=== PATIENT | male | born 1980 | race Caucasian/White ===

== ENCOUNTER 2018-08-30 09:56 | Emergency (ER) | payer SELFPAY ==
[~2018-08-30] VITALS: Ht 188 cm; Wt 60.6 kg
--- OUTSIDE RECORDS SUMMARY | 2018-08-30 09:59 | XMS REPORT | Summary of Care ---
Author Author [facility] Organization [facility] Address Unknown Phone Unavailable Encounter MARIYA Allison(YESENIA) [id number] Date(s): 09/18/16 - 09/18/16 [facility] [address] [place] [address]- Discharge Diagnosis: Acute hip pain Discharge Disposition: Home or Self Care Attending Physician: Heath Fay MD Vital Signs 1 2 3 Most recent to oldest [Reference Range]: 187.96 cm (09/18/16 4:23 PM) Height 98.1 DegF (09/18/16 4:23 PM) Temperature Oral [96.4-99.1 DegF] 132/79 mmHg (09/18/16 6:13 PM) 125/70 mmHg (09/18/16 5:00 PM) 133/90 mmHg (09/18/16 4:23 PM) Blood Pressure [90-140/60-90 mmHg] 16 BRMIN (09/18/16 4:23 PM) Respiratory Rate [14-20 BRMIN] 82 bpm (09/18/16 4:23 PM) Peripheral Pulse Rate [60-100 bpm] 75 kg (09/18/16 4:23 PM) Weight 21.23 m2 (09/18/16 4:23 PM) Body Mass Index Problem List Condition Effective Dates Status Health Status Informant Anxiety(Confirmed) Resolved Allergies, Adverse Reactions, Alerts Substance Reaction Severity Status NKDA Active Medications Motrin 800 mg oral tablet 800 mg=1 tab, PO, Q8H, PRN Pain, Take with food, # 18 tab, 0 Refill(s) Start Date: 09/18/16 Stop Date: 09/19/16 Status: Completed Ultram 50 mg oral tablet 1 - 2 tabs, PO, Q4-6H, PRN as needed for pain, # 16 tab, 0 Refill(s) Start Date: 09/18/16 Stop Date: 09/19/16 Status: Completed Results No data available for this section Immunizations No data available for this section Procedures No data available for this section Social History Social History Type Response Smoking Status Current every day smoker; Type: Cigarettes; Ready to change: No; Concerns about tobacco use in household: Yes; Exposure to Tobacco Smoke None; Cigarette Smoking Last 365 Days No; Reg Smoking Cessation Counseling No Assessment and Plan No data available for this section
--- OUTSIDE RECORDS SUMMARY | 2018-08-30 09:59 | XMS REPORT | Summary of Care ---
Author Author [facility] Organization [facility] Address Unknown Phone Unavailable Encounter MARIYA Allison(YESENIA) [id number] Date(s): 12/19/15 - 12/19/15 [facility] [address] [place] [address]- [phone] Discharge Disposition: Elopement Attending Physician: Mac Jackson MD Vital Signs Most recent to 1 oldest [Reference Range]: Height 187.96 cm (12/19/15 4:44 PM) Temperature Oral 98.0 DegF [96.4-99.1 DegF] (12/19/15 4:44 PM) Blood Pressure 117/61 mmHg [90-140/60-90 mmHg] (12/19/15 4:44 PM) Respiratory Rate 18 BRMIN [14-20 BRMIN] (12/19/15 4:44 PM) Peripheral Pulse 89 bpm Rate [60-100 bpm] (12/19/15 4:44 PM) Weight 70.455 kg (12/19/15 4:44 PM) Body Mass Index 19.94 m2 (12/19/15 4:44 PM) Problem List Condition Effective Dates Status Health Status Informant Anxiety(Confirmed) Resolved Allergies, Adverse Reactions, Alerts Substance Reaction Severity Status NKDA Active Medications No data available for this section Results No data available for this section [...]
--- OUTSIDE RECORDS SUMMARY | 2018-08-30 09:59 | XMS REPORT | Summary of Care ---
Author Author [facility] Organization [facility] Address Unknown Phone Unavailable Encounter MARIYA Allison(YESENIA) [id number] Date(s): 12/12/15 - 12/12/15 [id number] [place] [address]- Discharge Diagnosis: Avascular necrosis Discharge Diagnosis: Chronic hip pain Discharge Disposition: Home or Self Care Attending Physician: Philip Ruff MD Vital Signs Most recent to 1 2 oldest [Reference Range]: Temperature Oral 98.5 DegF [96.4-99.1 DegF] (12/12/15 2:28 PM) Blood Pressure 111/64 mmHg 136/77 mmHg [90-140/60-90 mmHg] (12/12/15 4:20 PM) (12/12/15 2:28 PM) Respiratory Rate 17 BRMIN 18 BRMIN [14-20 BRMIN] (12/12/15 4:20 PM) (12/12/15 2:28 PM) Peripheral Pulse 82 bpm 102 bpm Rate [60-100 bpm] (12/12/15 4:20 PM) *HI* (12/12/15 2:28 PM) Weight 70 kg (12/12/15 2:28 PM) Problem List Condition Effective Dates Status Health Status Informant Anxiety(Confirmed) Resolved Allergies, Adverse Reactions, Alerts Substance Reaction Severity Status NKDA Active Medications tramadol 50 mg oral tablet 50 mg, PO, Q4-6H, PRN Pain, X 4 day, # 20 tab, 0 Refill(s) Start Date: 12/12/15 Stop Date: 12/16/15 Status: Ordered Results No data available for this section [...]
--- OUTSIDE RECORDS SUMMARY | 2018-08-30 09:59 | XMS REPORT | Continuity of Care Document ---
Author Author [employer] Address Unknown Phone Unavailable Care Team Providers Care Guide Name Role Phone DrEd Online Doctor Information Mango-Mate Unavailable Unavailable Problems Problem Status Onset Date Classification Date Reported Comments Source Discharge Diagnosis: Acute hip pain 09/18/2016 09/21/2016 [facility] HIP PAINV Active 09/18/2016 [facility] HIP PAIN Active 09/18/2016 [facility] ALTERED Active 12/19/2015 [facility] Discharge Diagnosis: Avascular necrosis 12/12/2015 12/15/2015 [facility] Discharge Diagnosis: Chronic hip pain 12/12/2015 12/15/2015 [facility] COLD;SORE THROAT; RINGWORM Active 01/30/2014 [facility] Discharge Diagnosis: Allergic reaction to insect sting 09/23/2013 09/26/2013 [facility] INSECT BITE Active 09/23/2013 [facility] Anxiety Resolved Problem 09/21/2016 [facility] Medications Medication Details Route Status Patient Instructions Ordering Provider Order Date Source tramadol hydrochloride 50 MG Oral Tablet [Ultram] 1 - 2 tabs, PO, Q4-6H, PRN as needed for pain, # 16 tab, 0 Refill(s) No Longer Active 09/18/2016 [facility] Motrin 800 mg oral tablet 800 mg=1 tab, PO, Q8H, PRN Pain, Take with food, # 18 tab, 0 Refill(s) No Longer Active 09/18/2016 [facility] tramadol hydrochloride 50 MG Oral Tablet 50 mg, PO, Q4- 6H, PRN Pain, X 4 day, # 20 tab, 0 Refill(s) Active 12/12/2015 [facility] Tylenol 650 mg, Route: PO, Drug form: TAB, ONCE, Dosing Weight 74.182, kg, Priority: STAT, Start date: 01/30/14 20:54:00, Stop date: 01/30/14 20:54:00 Inactive 01/31/2014 [facility] Zantac 50 mg, 2 mL, Route: IV, Drug form: INJ, ONCE, Start date: 09/23/13 12:00:00, Stop date: 09/23/13 12:00:00Notes: (Same as:Zantac) Non-Formulary Item Inactive 09/23/2013 [facility] sodium chloride 5 mL, Route: IV, Start date: 09/23/13 11:45:00, Stop date: 09/23/13 11:45:00Notes: preservative free. Inactive 09/23/2013 [facility] methylPREDNISolone SODium SUCCinate 125 mg, 2 mL, Route: IVP, Drug form: INJ, ONCE, Dosing Weight 70.909, kg, Priority: STAT, Start date: 09/23/13 10:52:00, Stop date: 09/23/13 10:52:00Notes: (Same as:Solu- MEDROL, A-Methapred) Inactive 09/23/2013 [facility] Diphenhydramine 50 mg, 1 mL, Route: IVP, Drug form: INJ, ONCE, Dosing Weight 70.909, kg, Priority: STAT, Start date: 09/23/13 10:51:00, Stop date: 09/23/13 10:51:00Notes: (Same as: Benadryl) Inactive 09/23/2013 [facility] Famotidine 20 mg, 2 mL, Route: IVP, Drug form: INJ, ONCE, Dosing Weight 70.909, kg, Priority: STAT, Start date: 09/23/13 10:51:00, Stop date: 09/23/13 10:51:00Notes: (Same as: Pepcid) Can be dilute in 5-10cc NS IVP: Slow IV push over at least 2 minutes. Inactive 09/23/2013 [facility] Saline Flush 0.9% 5 ml, Route: IVP, Drug Form: INJ, Dosing Weight 70.909, kg, Q8H, PRN Line Flush, STAT, Start date: 09/23/13 10:51:00, Duration: 30 day, Stop date: 10/23/13 10:50:00Notes: (Same as: BD Posiflush) Inactive 09/23/2013 [facility] Allergies, Adverse Reactions, Alerts No Known Medication Allergies Immunizations No Data Provided for This Section Results Order Name Results Value Reference Range Date Interpretation Comments Source IMMUNOLOGY CDC HIV 4th GEN Negative (09/23/13 11:10 AM) Negative 09/23/2013 [facility] Pathology Reports No Data Provided for This Section Diagnostic Reports Report Value Date Source Femur series DX Radiographs of the LEFT femur Clinical Indication: Trauma - Pain. Comparison: Prior radiographs from December 12, 2015. Technique: 5 views femur FINDINGS: There is a deformity of the left femoral head, with articular surface flattening and subchondral lucency. This is likely reflective of chronic avascular necrosis. No definitive acute fracture or dislocation. No obvious soft tissue swelling. No evidence of radiopaque foreign body. If there is persistent clinical concern, CT or MRI can be obtained for further evaluation. IMPRESSION: No acute fractures. Sequela of left femoral head avascular necrosis. SL: [email or web address] 09/18/2016 [facility] AP DX Clinical Indication: Trauma - pelvis Pain. Comparison: 12/12/2015. FINDINGS: The AP pelvis radiograph shows no fractures or dislocations of the pelvis. The pelvic and obturator rings are intact. The pubic rami are intact. The symphysis pubis and sacroiliac joints are unremarkable. The visualized sacral foramina are unremarkable. There are changes of avascular necrosis again noted to both femoral heads. There has been collapse of the left femoral head with worsening mild left hip arthritis. No definite collapse is noted to the right femoral head. [id number] right hip joint arthritis is unchanged. If there is further concern, recommend follow-up radiographs or bone scan for complete assessment. IMPRESSION: 1. No acute fracture or dislocation. 2. Stage IV left hip avascular necrosis. Stage III right hip avascular necrosis. SL: [email or web address] 09/18/2016 [facility] Hip bilat w pelvis and both lat hips DX EXAMINATION: Bilateral hips with pelvis and both lateral hips. HISTORY: Bilateral hip pain; bilateral femoral head avascular necrosis FINDINGS: AP view of the pelvis and frogleg lateral views of each hip are performed without comparison. There are large areas of high-grade avascular necrosis of the bilateral femoral heads with areas of articular surface collapse bilaterally, left greater than right. There is no acute fracture or dislocation. The sacral ala appear intact. IMPRESSION: 1. Large areas of high-grade avascular necrosis of both femoral heads with areas of articular surface collapse bilaterally, left greater than right. 12/12/2015 [facility] Consultation Notes No Data Provided for This Section Discharge Summaries No Data Provided for This Section History and Physicals No Data Provided for This Section Vital Signs Vital Sign Value Date Comments Source Systolic (mm Hg) 132 09/18/2016 [facility] Diastolic (mm Hg) 79 09/18/2016 [facility] Systolic (mm Hg) 125 09/18/2016 [facility] Diastolic (mm Hg) 70 09/18/2016 [facility] Weight 75 09/18/2016 [facility] BMI Calculated 21.23 09/18/2016 [facility] Height 187.96 cm 09/18/2016 [facility] Temperature Oral (F) 98.1 F 09/18/2016 [facility] Heart Rate 82 09/18/2016 [facility] Respitory Rate 16 09/18/2016 [facility] Systolic (mm Hg) 133 09/18/2016 [facility] Diastolic (mm Hg) 90 09/18/2016 [facility] BMI Calculated 19.94 12/19/2015 [facility] Weight 70.455 12/19/2015 [facility] Height 187.96 cm 12/19/2015 [facility] Systolic (mm Hg) 117 12/19/2015 [facility] Diastolic (mm Hg) 61 12/19/2015 [facility] Heart Rate 89 12/19/2015 [facility] Respitory Rate 18 12/19/2015 [facility] Temperature Oral (F) 98.0 F 12/19/2015 [facility] Heart Rate 82 12/12/2015 [facility] Respitory Rate 17 12/12/2015 [facility] Systolic (mm Hg) 111 12/12/2015 [facility] Diastolic (mm Hg) 64 12/12/2015 [facility] Systolic (mm Hg) 136 12/12/2015 [facility] Diastolic (mm Hg) 77 12/12/2015 [facility] Temperature Oral (F) 98.5 F 12/12/2015 [facility] Respitory Rate 18 12/12/2015 [facility] Heart Rate 102 12/12/2015 [facility] Weight 70 12/12/2015 [facility] Diastolic (mm Hg) 78 01/31/2014 [facility] Systolic (mm Hg) 123 01/31/2014 [facility] Respitory Rate 18 01/31/2014 [facility] Heart Rate 91 01/31/2014 [facility] Temperature Oral (F) 98.3 F 01/31/2014 [facility] Temperature Oral (F) 100.8 F 01/31/2014 [facility] Respitory Rate 19 01/31/2014 [facility] Heart Rate 92 01/31/2014 [facility] Diastolic (mm Hg) 80 01/31/2014 [facility] Systolic (mm Hg) 125 01/31/2014 [facility] Height 187.96 cm 01/31/2014 [facility] Weight 74.182 01/31/2014 [facility] BMI Calculated 21 01/31/2014 [facility] Respitory Rate 20 09/23/2013 [facility] Heart Rate 57 09/23/2013 [facility] Systolic (mm Hg) 107 09/23/2013 [facility] Diastolic (mm Hg) 67 09/23/2013 [facility] Temperature Oral (F) 97.8 F 09/23/2013 [facility] BMI Calculated 20.07 09/23/2013 [facility] Weight 70.909 09/23/2013 [facility] Height 187.96 cm 09/23/2013 [facility] Systolic (mm Hg) 108 09/23/2013 [facility] Temperature Oral (F) 97.8 F 09/23/2013 [facility] Respitory Rate 18 09/23/2013 [facility] Heart Rate 75 09/23/2013 [facility] Diastolic (mm Hg) 63 09/23/2013 [facility] Encounters Location Location Details Encounter Type Encounter Number Reason For Visit Attending Provider ADM Date DC Date Status Source [facility] [id number] Paras Spence 09/23/2013 09/23/2013 [facility] [id number] Shyla Dunlap 01/31/2014 01/31/2014 [facility] [id number] Philip Ruff 12/12/2015 12/12/2015 [facility] Emergency [id number] Morakinyo Akintola 12/19/2015 12/19/2015 [facility] Emergency [id number] Heath Weathers 09/18/2016 09/18/2016 [facility] Procedures No Data Provided for This Section Assessment and Plan No Data Provided for This Section Plan of Care No Data Provided for This Section Social History Social History Date Source Social History TypeResponse Smoking Status Current every day smoker; Type: Cigarettes; Ready to change: No; Concerns about tobacco use in household: Yes; Exposure to Tobacco Smoke None; Cigarette Smoking Last 365 Days No; Reg Smoking Cessation Counseling No 09/18/2016 [facility] Social History TypeResponse Smoking Status Current every day smoker; Type: Cigarettes; Ready to change: No; Concerns about tobacco use in household: Yes; Exposure to Tobacco Smoke None; Cigarette Smoking Last 365 Days No; Reg Smoking Cessation Counseling No 12/12/2015 [facility] Social History TypeResponse Smoking Status Current every day smoker; Type: Cigarettes; Ready to change: No; Concerns about tobacco use in household: Yes; Exposure to Tobacco Smoke None; Cigarette Smoking Last 365 Days No; Reg Smoking Cessation Counseling No 12/12/2015 [facility] Social History TypeResponse Smoking Status Current every day smoker, Type: Cigarettes, Exposure to Tobacco Smoke None, Cigarette Smoking Last 365 Days No, Reg Smoking Cessation Counseling No 01/31/2014 [facility] Family History No Data Provided for This Section Advance Directives No Data Provided for This Section Functional Status No Data Provided for This Section
--- OUTSIDE RECORDS SUMMARY | 2018-08-30 09:59 | XMS REPORT | Clinical Summary ---
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 Active escitalopram oxalate Take 1 tablet 30 tablet 11 (LEXAPRO) 20 mg by mouth 9 tabletIndications: daily Ok to Anxiety provide 30 or 90 day supply per patient preference. Active loratadine (CLARITIN) 10 Take 1 tablet 30 tablet 0 mg tabletIndications: by mouth 9 Upper respiratory tract daily. infection, unspecified type Active omeprazole (PRILOSEC) 20 Take 1 28 capsule 0 mg delayed release capsule by 9 capsuleIndications: mouth daily Abdominal pain, left before a upper quadrant meal. 03/08/2018 Discontinued thiamine, B-1, 100 mg Take 1 tablet 30 tablet 1 tabletIndications: by mouth 7 Alcohol abuse, in daily. remission 11/16/2017 Discontinued escitalopram oxalate Take 1 tablet 30 tablet 2 (LEXAPRO) 20 mg by mouth 8 tabletIndications: daily. Anxiety 03/08/2018 Discontinued acetaminophen (TYLENOL) Take 1 tablet 50 tablet 0 500 mg tabletIndications: by mouth 8 Avascular necrosis of every 6 hours femoral head, left, as needed for Avascular necrosis of Pain. femoral head, right 11/16/2017 Discontinued Meloxicam 15 mg Take 1 tablet 30 tablet 0 tabletIndications: by mouth 8 Avascular necrosis of daily as femoral head, left, needed for Avascular necrosis of Pain. femoral head, right 03/08/2018 Discontinued folic acid (FOLVITE) 1 mg Take 1 tablet 30 tablet 0 tabletIndications: by mouth 8 Alcohol abuse, in daily. remission 03/08/2018 Discontinued famotidine (PEPCID) 40 mg Take 1 tablet 28 tablet 0 tabletIndications: LUQ by mouth 8 pain nightly at bedtime as needed for Heartburn. 12/14/2017 Discontinued escitalopram oxalate Take 1 tablet 30 tablet 2 (LEXAPRO) 20 mg by mouth 8 tabletIndications: daily. Anxiety 12/14/2017 Discontinued Meloxicam 15 mg Take 1 tablet 30 tablet 0 tabletIndications: by mouth 8 Avascular necrosis of daily as femoral head, left, needed for Avascular necrosis of Pain. femoral head, right 03/08/2018 Discontinued escitalopram oxalate Take 1 tablet 30 tablet 2 (LEXAPRO) 20 mg by mouth 8 tabletIndications: daily. Anxiety 03/08/2018 Discontinued gabapentin (NEURONTIN) Take 1 84 capsule 0 300 mg capsule by 8 capsuleIndications: mouth 3 times Avascular necrosis of daily. femoral head, left, Avascular necrosis of femoral head, right 02/08/2018 Discontinued loratadine (CLARITIN) 10 Take 1 tablet 28 tablet 0 mg tabletIndications: by mouth 8 Upper respiratory tract daily. infection, unspecified type 12/24/2017 GUAIFENESIN-DM CR Take 2 20 tablet 0 (MUCINEX DM) 30-600 mg tablets at 8 tabletIndications: Upper bedtime as respiratory tract needed for infection, unspecified cough. type 03/08/2018 Discontinued loratadine (CLARITIN) 10 Take 1 tablet 30 tablet 0 mg tabletIndications: by mouth 8 Upper respiratory tract daily. infection, unspecified type 03/08/2018 Discontinued gabapentin (NEURONTIN) Take 0.5 42 tablet 0 600 mg tabletIndications: tablets by 8 Avascular necrosis of mouth 3 times femoral head, left daily. 03/08/2018 Discontinued citalopram (CELEXA) 20 mg Take 1 tablet 28 tablet 0 tabletIndications: by mouth 8 Anxiety daily. 03/08/2018 metroNIDAZOLE (FLAGYL) Take 4 4 tablet 0 500 mg tabletIndications: tablets by 9 Urinary frequency mouth once for 1 dose 4 tablets once in clinic directly observed treatment for Trichomoniasi s. Active Problems Problem Noted Date Abdominal pain, left upper quadrant 03/08/2018 Urinary frequency 03/08/2018 Homelessness 02/11/2018 Avascular necrosis of femoral head, left 07/17/2017 Avascular necrosis of femoral head, right 07/17/2017 Allergic rhinitis 07/17/2017 Chronic hip pain 07/06/2016 Anxiety 07/06/2016 Alcohol use disorder, severe, in early remission 07/06/2016 Tobacco use disorder 07/06/2016 Encounters Care Team Description Date Type Specialty Castro Taylor Physician Urinary frequency (Primary Dx); Abdominal pain, left upper quadrant; Avascular necrosis of femoral head, left; Anxiety; Upper respiratory tract infection, unspecified type; Alcohol use disorder, severe, in early remission 03/08/2018 Office Visit Family Practice 03/08/2018 Travel Caitlin Barr NP Anxiety (Primary Dx); Preventative health care; Avascular necrosis of femoral head, left; Avascular necrosis of femoral head, right; Upper respiratory tract infection, unspecified type; Homelessness 02/08/2018 Office Visit Family Practice 02/08/2018 Travel Toro Macdonald Appointment Related Questions (reminder) 01/10/2018 Telephone Family Practice Castro Taylor Physician Upper respiratory tract infection, unspecified type (Primary Dx); Anxiety; Avascular necrosis of femoral head, left; Avascular necrosis of femoral head, right 12/14/2017 Office Visit Family Practice Castro Taylor Physician Anxiety (Primary Dx); LUQ pain; Avascular necrosis of femoral head, left; Avascular necrosis of femoral head, right; Alcohol use disorder, severe, in early remission 11/16/2017 Office Visit Family Practice after 08/29/2017 Immunizations Name Administration Dates Next Due Influenza, Injectable, 02/08/2018 Quadrivalent, Preservative Free PNEUMOCOCCAL 23-VALPS 03/08/2018 VACCINE 25 MCG/0.5 ML INJECTION Family History Medical History Relation Name Comments Psychiatry Father Depression Cancer Mother Mouth Relation Name Status Comments Father Mother Social History Date Tobacco Use Types Packs/Day Years Used Current Every Day Smoker Cigarettes 2 Smokeless Tobacco: Never Used Drinks/Week oz/Week Comments Alcohol Use 0 Standard drinks or equivalent 0.0 Sober since June 21 No Sex Assigned at Date Recorded Not on file Industry Job Start Date Occupation Not on file Not on file Not on file Travel End Travel History Travel Start No recent travel history available. Last Filed Vital Signs Reading Time Taken Comments Vital Sign 120/75 03/08/2018 8:38 AM [employer]ENT INS[employer] Blood Pressure 75 03/08/2018 8:38 AM [employer]ENT INSUR[employer] AD[employer]ER Pulse 36.7 C (98 F) 03/08/2018 8:38 AM [employer] INSUR[employer] AD[employer]ER Temperature - - Respiratory Rate - - Oxygen Saturation - - Inhaled Oxygen Concentration 68 kg (150 lb) 03/08/2018 8:38 AM [employer]ENT INSURANCE ADJUSTER Weight 188 cm (6' 2") 03/08/2018 8:38 AM [employer]ENT INSURANCE ADJUSTER Height 19.26 03/08/2018 8:38 AM [employer] INSURANCE ADJUSTER Body Mass Index Plan of Treatment Health Maintenance Due Date Last Done Comments IMM Influenza Seasonal 11/13/2018 02/08/2018Nov to April (>/=19 yrs) Procedures Comments Procedure Name Priority Date/Time Associated Diagnosis CHLAMYDIA/GONORRHEA-AFFIL Routine 03/08/2018 Urinary frequency IATE MANUALLY ENTERED 9:03 AM [employer]DEP[employer]ENT INSURANCE ADJUSTER POC URINE DIPSTICK W/O Routine 03/08/2018 Urinary frequency MICRO-FQHC MANUALLY ENTERED after 08/29/2017 Results * CHLAMYDIA/GONORRHEA-AFFILIATE MANUALLY ENTERED (03/08/2018 9:03 AM INDEPENDENT INSURANCE ADJUSTER) Specimen Narrative Performed At Performing Organization Address City/State/Zipcode Phone Number [address], [address] [address] SYSTEM * POC URINE DIPSTICK W/O MICRO-FQHC MANUALLY ENTERED (03/08/2018) Blood POC Neg Urobilinogen Norm POC Bilirubin POC Neg Protein POC Neg Nitrate POC Neg Ketone POC Neg Glucose POC Neg Ph POC 7 Spec [place] 1.005 POC Leukocyte POC Neg COLOR POC Clarity POC Specimen Urine after 08/29/2017
--- OUTSIDE RECORDS SUMMARY | 2018-08-30 09:59 | XMS REPORT | Summary of Care ---
Author Organization Unknown Address Unknown Phone Unavailable Encounter MARIYA Alliosn(YESENIA) [id number] Date(s): 01/30/14 - 01/30/[address] Discharge Disposition: Non-Emergent Physician Attending: Shyla Dunlap MD Reason for Visit COLD;SORE THROAT; RINGWORM Vital Signs 1 2 3 Most recent to oldest [Reference Range]: 187.96 cm (01/30/14 8:47 PM) Height 98.3 DegF (01/30/14 9:38 PM) 98.3 DegF (01/30/14 9:38 PM) 100.8 DegF *HI* (01/30/14 8:47 PM) Temperature Oral [96.4-99.1 DegF] 123 mmHg (01/30/14 9:38 PM) 123 mmHg (01/30/14 9:38 PM) 125 mmHg (01/30/14 8:47 PM) Systolic Blood Pressure [90-140 mmHg] 78 mmHg (01/30/14 9:38 PM) 78 mmHg (01/30/14 9:38 PM) 80 mmHg (01/30/14 8:47 PM) Diastolic Blood Pressure [60-90 mmHg] 18 BRMIN (01/30/14 9:38 PM) 18 BRMIN (01/30/14 9:38 PM) 19 BRMIN (01/30/14 8:47 PM) Respiratory Rate [14-20 BRMIN] 91 bpm (01/30/14 9:38 PM) 91 bpm (01/30/14 9:38 PM) 92 bpm (01/30/14 8:47 PM) Peripheral Pulse Rate [60-100 bpm] 74.182 kg (01/30/14 8:47 PM) Weight 21 m2 (01/30/14 8:47 PM) Body Mass Index Problem List Condition Effective Dates Status Health Status Informant Anxiety(Confirmed) Resolved Allergies, Adverse Reactions, Alerts Substance Reaction Severity Status NKDA Active Medications Tylenol 650 mg, Route: PO, Drug form: TAB, ONCE, Dosing Weight 74.182, kg, Priority: STA Melissa, Start date: 01/30/14 20:54:00, Stop date: 01/30/14 20:54:00 Start Date: 01/30/14 Stop Date: 01/30/14 Status: Completed Medications Administered During Your Visit No data available for this section Immunizations No data available for this section Social History Social History Type Response Smoking Status Current every day smoker, Type: Cigarettes, Exposure to Tobacco Smoke None, Cigarette Smoking Last 365 Days No, Reg Smoking Cessation Counseling No
--- OUTSIDE RECORDS SUMMARY | 2018-08-30 09:59 | XMS REPORT | Summary of Care ---
Author Organization Unknown Address Unknown Phone Unavailable Encounter MARIYA Allison(YESENIA) [id number] Date(s): 09/23/13 - 09/23/13 [facility] [address] [place] [address] Discharge Diagnosis: Allergic reaction to insect sting Discharge Disposition: Home Physician Attending: Paras Spence MD Reason for Visit INSECT BITE Vital Signs Most recent to 1 2 oldest [Reference Range]: Height 187.96 cm (09/23/13 9:59 AM) Temperature Oral 97.8 DegF 97.8 DegF [96.4-99.1 DegF] (09/23/13 11:52 AM) (09/23/13 9:59 AM) Systolic Blood 107 mmHg 108 mmHg Pressure [90-140 (09/23/13 11:52 AM) (09/23/13 9:59 AM) mmHg] Diastolic Blood 67 mmHg 63 mmHg Pressure [60-90 (09/23/13 11:52 AM) (09/23/13 9:59 AM) mmHg] Respiratory Rate 20 BRMIN 18 BRMIN [14-20 BRMIN] (09/23/13 11:52 AM) (09/23/13 9:59 AM) Peripheral Pulse 57 bpm 75 bpm Rate [60-100 bpm] *LOW* (09/23/13 9:59 AM) (09/23/13 11:52 AM) Weight 70.909 kg (09/23/13 9:59 AM) Body Mass Index 20.07 m2 (09/23/13 9:59 AM) Problem List Condition Effective Dates Status Health Status Informant Anxiety(Confirmed) Resolved Allergies, Adverse Reactions, Alerts Substance Reaction Severity Status NKDA Active Medications diphenhydrAMINE 50 mg, 1 mL, Route: IVP, Drug form: INJ, ONCE, Dosing Weight 70.909, kg, Priorit y: STAT, Start date: 09/23/13 10:51:00, Stop date: 09/23/13 10:51:00 Notes: (Same as: Benadryl) Start Date: 09/23/13 Stop Date: 09/23/13 Status: Completed famotidine 20 mg, 2 mL, Route: IVP, Drug form: INJ, ONCE, Dosing Weight 70.909, kg, Priorit y: STAT, Start date: 09/23/13 10:51:00, Stop date: 09/23/13 10:51:00 Notes: (Same as: Pepcid)Can be dilute in 5-10cc NS IVP: Slow IV push over at le ast 2 minutes. Start Date: 09/23/13 Stop Date: 09/23/13 Status: Discontinued methylPREDNISolone SODium SUCCinate 125 mg, 2 mL, Route: IVP, Drug form: INJ, ONCE, Dosing Weight 70.909, kg, Priori ty: STAT, Start date: 09/23/13 10:52:00, Stop date: 09/23/13 10:52:00 Notes: (Same as:Solu-MEDROL, A-Methapred) Start Date: 09/23/13 Stop Date: 09/23/13 Status: Completed Saline Flush 0.9% 5 ml, Route: IVP, Drug Form: INJ, Dosing Weight 70.909, kg, Q8H, PRN Line Flush, STAT, Start date: 09/23/13 10:51:00, Duration: 30 day, Stop date: 10/23/13 10:5 0:00 Notes: (Same as: BD Posiflush) Start Date: 09/23/13 Stop Date: 09/23/13 Status: Discontinued sodium chloride 5 mL, Route: IV, Start date: 09/23/13 11:45:00, Stop date: 09/23/13 11:45:00 Notes: preservative free. Start Date: 09/23/13 Stop Date: 09/23/13 Status: Completed Zantac 50 mg, 2 mL, Route: IV, Drug form: INJ, ONCE, Start date: 09/23/13 12:00:00, Sto p date: 09/23/13 12:00:00 Notes: (Same as:Zantac) Non-Formulary Item Start Date: 09/23/13 Stop Date: 09/23/13 Status: Completed Results IMMUNOLOGY Most recent to 1 oldest [Reference Range]: CDC HIV 4th GEN Negative [Negative] (09/23/13 11:10 AM) Medications Administered During Your Visit No data available for this section Immunizations No data available for this section Social History Social History Type Response Smoking Status Current every day smoker, Type: Cigarettes, Exposure to Tobacco Smoke None, Cigarette Smoking Last 365 Days No, Reg Smoking Cessation Counseling No
[2018-08-30] MEDS ORDERED: SODIUM CHLORIDE 0.9% 1000ML 1,000 ML IV STA (10:08)
[2018-08-30] MEDS ORDERED: DIATRIZOATE MEGL/DIATRIZOA SOD 30 ML BTL PO ONE (10:17)
[2018-08-30 10:25] LABS: BASOPHILS % 0.3 % (0.0-1.0); EOSINOPHILS # (AUTO) 0.1 (0.0-0.4); EOSINOPHILS % 0.7 % (0.0-6.0); HEMATOCRIT 44.5 % (38.2-49.6); HEMOGLOBIN 15.7 g/dL (14.0-18.0); LYMPHOCYTES # (AUTO) 1.4 (1.0-3.2); LYMPHOCYTES % 19.9 % (18.0-39.1); MEAN CORPUSCULAR HEMOGLOBIN 30.5 pg (28-32); MEAN CORPUSCULAR HGB CONC 35.3 g/dL (31-35); MEAN CORPUSCULAR VOLUME 86.4 fL (81-99); MONOCYTES # (AUTO) 0.6 (0.2-0.8); MONOCYTES % 8.6 % (4.4-11.3); NEUTROPHILS % 70.1 % (38.7-80.0); PLATELET COUNT 216 x10e3/uL (140-360); RED BLOOD COUNT 5.15 x10e6/uL (4.3-5.7); RED CELL DISTRIBUTION WIDTH 13.5 % (11.7-14.4)
[2018-08-30 10:29] LABS: BILIRUBIN,URINE SMALL (NEGATIVE); CLARITY,URINE CLOUDY (CLEAR); COLOR,URINE ORANGE (YELLOW); KETONES,URINE 1+ (NEGATIVE); LEUKOCYTE ESTERASE ,URINE NEGATIVE (NEGATIVE); NITRITE,URINE NEGATIVE (NEGATIVE); PROTEIN,URINE DIPSTICK 1+ (NEGATIVE); URINE UROBILINOGEN 1 mg/dL (0.2 - 1)
[2018-08-30] MEDS ORDERED: ONDANSETRON HCL INJ 2MG/ML 2ML 2 MG/ML VIAL IV ONE (10:30)
[2018-08-30] MEDS ORDERED: PANTOPRAZOLE 40 MG 10ML VIAL IV ONE (10:30)
[2018-08-30 10:36] LABS: AMPHETAMINES SCREEN,URINE NEGATIVE (NEGATIVE); BENZODIAZEPINES SCREEN,URINE NEGATIVE (NEGATIVE); PHENCYCLIDINE SCREEN,URINE NEGATIVE (NEGATIVE)
[2018-08-30 10:37] LABS: ALANINE AMINOTRANSFERASE 20 IU/L (0-55); ALBUMIN 4.3 g/dL (3.5-5.0); ALBUMIN/GLOBULIN RATIO 1.2 (0.8-2.0); ALKALINE PHOSPHATASE 70 IU/L (40-150); ANION GAP 15.5 mmol/L (8-16); BLOOD UREA NITROGEN 20 mg/dL (7-26); BUN/CREATININE RATIO 25 (6-25); CALCIUM 9.4 mg/dL (8.4-10.2); CARBON DIOXIDE 27 mmol/L (22-29); CHLORIDE 99 mmol/L (98-107); EST GLOMERULAR FILTRATION RATE > 60 ML/MIN (60-); GLUCOSE 116 mg/dL (74-118); LIPASE 47 U/L (8-78); MAGNESIUM 2.2 MG/DL (1.3-2.1); POTASSIUM 3.5 mmol/L (3.5-5.1); SODIUM 138 mmol/L (136-145)
[2018-08-30 10:38] LABS: INR 0.88; PARTIAL THROMBOPLASTIN TIME 25.5 seconds (23.8-35.5); PROTHROMBIN TIME 12.4 seconds (11.9-14.5)
[2018-08-30 10:41] LABS: ACETAMINOPHEN < 3 ug/mL (10-30); SALICYLATE < 5.0 mg/dL (0-30)
[2018-08-30 10:58] LABS: RBC,URINE 0-5 /HPF (0-5); WBC,URINE (MAN) 0-5 /HPF (0-5)
[2018-08-30 10:59] LABS: BACTERIA,URINE RARE /HPF; EPITHELIAL CELLS,URINE RARE /LPF; MUCUS,URINE MODERATE (RARE)
--- NOTE | 2018-08-30 12:17 | Diagnostic Imaging Report ---
EXAM: CT Abdomen and Pelvis WITH intravenous contrast INDICATION: Abdominal pain COMPARISON: None. TECHNIQUE: Abdomen and pelvis were scanned utilizing a multidetector helical scanner from the lung base to the pubic symphysis after administration of IV contrast. Coronal and sagittal reformations were obtained. Routine protocol was performed. Scan was performed when during portal venous phase. IV CONTRAST: 100mL of Isovue 370 ORAL CONTRAST: Water COMPLICATIONS: None RADIATION DOSE: Total DLP: 193.6 mGy*cm Estimated effective dose: (DLP x 0.015 x size factor) mSv Dose modulation, iterative reconstruction, and/or weight based adjustment of the mA/kV was utilized to reduce the radiation dose to as low as reasonably achievable. FINDINGS: LOWER THORAX: Normal. HEPATOBILIARY: Diffuse hypoattenuation of the hepatic parenchyma consistent with hepatic steatosis. Subcentimeter hypodense lesions in the right liver are too small to adequately characterize on single phase CT imaging. Mild intrahepatic biliary ductal dilatation. The gallbladder appears unremarkable. SPLEEN: No splenomegaly. PANCREAS: No focal masses or ductal dilatation. ADRENALS: No adrenal nodules. KIDNEYS/URETERS: No hydronephrosis, stones, or solid mass lesions. PELVIC ORGANS/BLADDER: Unremarkable. PERITONEUM / RETROPERITONEUM: No free air or fluid. LYMPH NODES: No lymphadenopathy. VESSELS: Unremarkable. GI TRACT: Mild colonic diverticulosis with no CT evidence of diverticulitis. No bowel obstruction. Normal appendix. BONES AND SOFT TISSUES: No acute fracture. 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 No suspicious lytic or blastic lesions. IMPRESSION: Hepatic steatosis. Mild intrahepatic biliary ductal dilatation with no focal mass lesion. 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 Signed by: Rosario Coughlin MD on 08/30/2018 12:14 PM
--- NOTE | 2018-08-30 12:28 | NUR ---
MAT team paged at this time.
--- NOTE | 2018-08-30 12:47 | NUR ---
Spoke to Vicky from MAT team and she stated she will be here approx 1330.
[2018-08-30] MEDS ORDERED: SODIUM CHLORIDE 0.9% 50ML 50 ML ONE (13:09)
[2018-08-30] MEDS ORDERED: IOPAMIDOL 370 MG/ML 200 ML INFUS..BTL INJ ONE (13:09)
--- NOTE | 2018-08-30 16:06 | NUR ---
GURU FROM THE CALL CTR REC'D FAX AND IS TRYING TO GET A BED ASSIGMENT FOR THIS PATIENT AND WILL CALL BACK.
--- NOTE | 2018-08-30 16:23 | NUR ---
Patient resting with no distress noted. Sitter at bedside. Will continue to monitor patient.
--- NOTE | 2018-08-30 19:10 | NUR ---
PT ASSESSED. PT CONTINUES TO STATES THAT WANTS HELP FOR ALCOHOL ADDICTION. PT STATES THAT STILL FEELS LIKE "ENDING IT SOMETIMES." PT ASKED ABOUT PLAN AND STATED THAT "I WAS THINKING I WOULD WALK OUT INTO TRAFFIC." SITTER REMAINS AT BEDSIDE. SUICIDE PRECAUTIONS REMAIN IN EFFECT.
--- NOTE | 2018-08-30 19:13 | NUR ---
Report to Darryn. Patient resting with no distress noted.
--- NOTE | 2018-08-30 23:30 | NUR ---
ALEKSANDR SOLORZANO AT [facility] CALLED AND STATED THAT APPROVAL WILL BE RECEIVED PENDING COMPLETED SUZANNA AND NURSE TO NURSE REPORT ([phone])
--- NOTE | 2018-08-31 02:58 | NUR ---
CALLED TO MAT TEAM TO RECEIVE UPDATE ON SUZANNA
--- NOTE | 2018-08-31 05:00 | NUR ---
PT SLEEPING IN BED. NO DISTRESS NOTED. SITTER REMAINS AT BEDSIDE. Usha PEREARN SPOKE TO LISA AND STATES THAT MAT MEMBER WITH BE OUT THIS AM TO COMPLETE OPC.
--- NOTE | 2018-08-31 06:30 | NUR ---
NURSE TO NURSE REPORT ATTEMPTED, PER RADHA COTTON AT [facility] - REPORT CAN NOT BE RECEIVED UNTIL AFTER SUZANNA IS SIGNED AND SENT TO [place]
--- NOTE | 2018-08-31 07:00 | NUR ---
PATIENT RESTING QUIETLY AT THIS TIME; PATIENT SITTER BEDSIDE. PATIENT WATCHING TV WITH NO NEW NEEDS VOICED AT THIS TIME. PATIENT STATES UNDERSTANDING AND AGREEMENT WITH PLAN OF CARE. AWAITING TRANSFER TO [facility]
--- NOTE | 2018-08-31 08:00 | NUR ---
PATIENT WATCHING TV AT THIS TIME, NO NEEDS VOICED AT THIS TIME
--- NOTE | 2018-08-31 09:02 | NUR ---
[facility]ON [facility]INTON TEAM FLY FISHING GUIDE, IN DEPARTMENT TO PERFORM SUZANNA PAPERWORK.
--- NOTE | 2018-08-31 10:48 | NUR ---
SPOKE WITH ALMA, MAT TEAM SHEET METAL FABRICATOR, STATED THAT SHE IS TRANSFERING THE "OPC" ORDER OF PROTECTIVE CUSTODY , FAXING PAPERWORK TO THE COURT AND PATIENT WILL BE PENDING [facility] TRANSPORT.
--- NOTE | 2018-08-31 11:42 | NUR ---
SPOKE WITH GABRIEL, [facility], STATES THAT SHE HAS NOT RECEIVED ANY PAPERWORK FROM MAT TEAM OR COURT AND WILL NOT ACCEPT PATIENT TRANSFER UNTIL PAPERWORK IS RECEIVED. WILL NOTIFY MAT TEAM TO FOLLOW UP ON PAPERWORK.
--- NOTE | 2018-08-31 11:45 | NUR ---
SPOKE WITH SHARON,MAT TEAM PRODUCT APPLICATIONS ENGINEER, NOTIFIED THAT [facility] TRANSFER [place] HAS NOT RECEIVED PAPERWORK FROM COURT AND WILL NOT ACCEPT PATIENT TRANSFER UNTIL PAPERWORK IS RECEIVED. SHARON STATED, "IT WAS REQUESTED,ISSU[facility] AND [facility] TO [facility]", STATES THAT HE WILL NOTIFY GABRIEL FROM [facility] AND WILL UPDATE ON THE CURRENT PAPERWORK AND UPDATE ON THE CURRENT PLAN OF CARE AND THAT PATIENT IS PENDING TRANSFER BY [place].
--- NOTE | 2018-08-31 13:48 | NUR ---
RECEIVED CALL FROM GABRIEL,[facility], STATES THAT SHE HAS NOT RECEIVED ANY PAPERWORK FROM MAT TEAM, GABRIEL STATES, "I WILL CALL THEM AND SEE IF I CAN GET WHAT I NEED".
--- NOTE | 2018-08-31 13:59 | NUR ---
NOTIFIED SHARON,[facility] TEAM REP, NOTIFIED THAT [facility]RIEL,[facility], STATED THAT SHE (GABRIEL) HAS NOT RECEIVED PAPERWORK AND WILL NOT ACCEPT TRANSFER UNTIL PAPERWORK IS RECEIVED. SHARON STATES THAT HE FAXED THE PAPERWORK TO [facility] AND [facility]CE[facility]. SHARON STATED THAT A COPY OF THE ORDER OF PROTECTIVE CUSTODY IS NOT REQUIRED TO BE SENT TO THE TRANSFER CENTER IN ORDER FOR THE PATIENT TO BE TRANSFERED PER [facility] OFFICE.
--- NOTE | 2018-08-31 14:21 | NUR ---
PATIENT REPORT CALLED TO SHIRLEY COTTON AT [facility]; AWAITING [facility] FOR TRANSPORT OF PATIENT
--- NOTE | 2018-08-31 14:24 | NUR ---
[facility], PATIENT TRANSFER ACCEPTED, ORDER OF PROTECTIVE CUSTODY RECEIVED. ACCEPTING DOCTOR: DR CRISTELA WARREN DR ACCEPTING TIME: 08/30/18 @ 2030 ADMIN APPROVAL: ALEKSANDR SOLORZANO APPROVAL : 08/30/18 @ 2304 BED: [address]
--- NOTE | 2018-08-31 19:01 | NUR ---
REPORT TO RADHA AT THIS TIME
--- NOTE | 2018-09-01 06:48 | NUR ---
REPORT TO ELICAI FELDMAN
--- NOTE | 2018-09-01 06:49 | NUR ---
recieved report from off going nurse. 1:1 sitter in room with patient. patient calm and cooperative. pending transfer to [facility]. pt in paper scubs, room cleared, will continue to monitor.
--- NOTE | 2018-09-01 09:00 | NUR ---
PATIENT IN ROOM IN BED. AWAKE AND ALERT. 1:1 SITTER AT BEDSIDE. AM MEAL ORDERED FOR PATIENT. PENDING TRANSFER TO [facility]
--- NOTE | 2018-09-01 12:26 | NUR ---
PATIENT IN ROOM IN BED. AWAKE AND ALERT. NO S/S OF ACURE DISTRESS. RESP EVEN AND NONLABORED. 1:1 SITTER AT BEDSIDE. PATIENT REPORTS HE IS STILL HAVING SI BUT IS WANTING HELP SO HE STATES HE IS WILLING TO GO FOR HELP.
[2018-09-01] MEDS ORDERED: ACETAMINOPHEN 325 MG TAB PO ONE (15:00)
--- NOTE | 2018-09-01 15:35 | NUR ---
RECIEVED REPORT FROM ELICIA FELDMAN; 1:1 SITTER AT BEDSIDE, PT IN PAPER SCRUBS, IN STRETCHER WATCHING TV, BREATHING EVEN/UNLABORED, NON-DIAPHORETIC; PERSONAL BELONGINGS REMAIN SECURED IN NURSES STATION, ROOM REMAINS CLEAR OF EQUIPMENT.
--- NOTE | 2018-09-01 16:20 | NUR ---
PT TAKEN TO ROOM 114 TO UTILIZE SHOWER AND TO BRUSH TEETH, TAKEN VIA W/C BY MYSELF AND WATCHED 1:1 FOR SAFETY. PT STATES "I FEEL MUCH BETTER NOW" AFTER SHOWER.
--- NOTE | 2018-09-01 16:40 | NUR ---
PT RETURNED TO ROOM 10 IN ED, SITTER AT BEDSIDE FOR 1:[address]; PT VERBALIZES EVENT PRIOR TO HOSPITALIZATION AND STATES "I WAS IN A REALLY BAD PLACE MAN, BUT I AM DOING MUCH BETTER NOW THANKS TO Y'ALL AND I KNOW I NEED TO SEE A PSYCHIATRIST SO I CAN TACKLE THE ISSUE OF WANTING TO KILL MYSELF, CAUSE I KNOW I CAN ALWAYS BOUNCE BACK WHEN THINGS START TO GO [place]. WHEN I WAS IN THE HOTEL BINGING ON THE [place] I JUST WANTED TO RUN OUT INTO THE HIGHWAY AND KILL MYSELF, BUT I'M MUCH BETTER NOW"; PT DENIES SUICIDAL IDEATION AT THIS TIME.
--- NOTE | 2018-09-01 18:20 | NUR ---
PT LAYING SUPINE ON STRETCHER EYES CLOSED, BREATHING EVEN/UNLABORED, NON-DIAPHORETIC, PCT AT BEDSIDE FOR 1:1 SI PRECAUTIONS, WILL CONTINUE TO MONITOR.
--- NOTE | 2018-09-01 20:15 | NUR ---
RECEIVED CALL FROM GABRIEL AT [facility] REQUESTING SUZANNA, FAXED OVER AT THIS TIME TO .
--- NOTE | 2018-09-01 20:20 | NUR ---
MAT TEAM CALLED TO OBTAIN A STATUS UPDATE, INFORMED THAT [facility] HAVE BEEN NOTIFIED OF PENDING TRANSPORT TO [facility], AND LAST UPDATE OBTAINED AT [facility] 1730 TODAY STATING THAT [facility] ARE FULLY AWARE OF TRANSFER REQUIREMENT AND HAVE UP TO 24 HOURS TO TRANSPORT PT TO FACILITY.
--- NOTE | 2018-09-01 21:00 | NUR ---
NURSE TO NURSE REPORT GIVEN TO LULA SONG; UPDATED ON PATIENT STATUS AND SI, INFORMED OF MEDS GIVEN, LAB WORK, V/S.
--- NOTE | 2018-09-01 22:10 | NUR ---
PT REMAINS WITH 1:1 SITTER AND FREE OF HARM, NO NEEDS VOICED AT THIS TIME, BREATHING EVEN/UNLABORED, NAD NOTED, WILL CONTINUE TO MONITOR.
--- NOTE | 2018-09-01 23:50 | NUR ---
[facility] ARRIVED TO TRANSPORT PATIENT TO [facility], DEPUTY ILEANA AND GABBYUTJoey STOVALL PRESENT, PT PERSONAL BELONGINGS PROVIDED AND SECURED.
[2018-09-02] VITALS: BP 138/72
== END 2018-09-02 ==
LOC: ER 09:56
DX: R45.851 Suicidal ideations (principal); R10.9 Unspecified abdominal pain; R11.0 Nausea; R19.7 Diarrhea, unspecified; K52.9 Noninfective gastroenteritis and colitis, unspecified; E86.0 Dehydration
CPT/HCPCS: 36415; 74177; 80053; 80307; 80320; 80329 ×2; 81001; 83690; 83735; 85025; 85610; 85730; 99285; C9113; J2405; J7030; Q9967